=== PATIENT | female | born 1980 | race Two or more races ===

== ENCOUNTER 2021-04-10 13:43 | Emergency (ER) | payer SELFPAY ==
[~2021-04-10] VITALS: Ht 167.6 cm; Wt 72.7 kg
[2021-04-10 14:32] VITALS: BP 167/96
[2021-04-10] MEDS ORDERED: HYDROcodone/APAP 5/325MG 1 TAB TABLET PO ONE (15:00)
--- NOTE | 2021-04-10 15:57 | RAD ---
EXAMINATION: XR LT TIBIA + FIBULA, XR EXAM OF ANKLE_LEFT 3V, XR FOOT_LEFT 3 VIEWS CLINICAL HISTORY: Left lower extremity pain, worst on top of the foot TECHNIQUE: XR LT TIBIA + FIBULA, XR EXAM OF ANKLE_LEFT 3V, XR FOOT_LEFT 3 VIEWS Number of Images/Views: 2 tibia/fibula, 3 ankle, 3 foot COMPARISON: None FINDINGS: Incompletely visualized fracture strongly suspected through the fourth metatarsal base. Questionable fracture along the medial second metatarsal base, best seen on oblique view of the foot. No evidence of additional acute fracture in the foot, ankle, or leg. Mild subcutaneous edema in the foot, most pr onounced dorsally, throughout the ankle, and along the medial aspect of the distal leg. IMPRESSION: Probable fourth metatarsal base fracture and questionable second metatarsal base fracture as describe d, correlate for point tenderness. If there is concern for Lisfranc injury, MRI could be obtained for further evaluation. Electronically signed by: Cosmo Decker DO (04/10/2021 3:55 PM) [id number]
--- NOTE | 2021-04-10 17:42 | PHYS DOC ---
Past Medical History Additional Past Medical Histor: MIGRAINES (NABIL HENAO DO) Past Medical History: Hypertension, Migraines (BREANA GURROLA DO) Past Surgical History: No Surgical History (NABIL HENAO DO) Past Surgical History: No Surgical History (BREANA GURROLA DO) Drug Use: None (BREANA GURROLA DO) General Adult EDM: Chief Complaint: FOOT INJURY PAIN HPI: HPI: 41-year-old female who denies any past medical history, presents the ED with her daughter, (patient consents to his/her/their knowledge and involvement in pts' medical care), with complaints of left ankle pain that occurred just prior to ED arrival. Patient states she was walking barefoot in her house when she accidentally rolled her ankle in an eversion motion. C/o pain over the anterior ankle and dorsal aspect of the foot arch. Denies prior injury to this joint. No associated pain at her knees or hips. Denied her head or lose consciousness. Was not under the influence of any alcohol or drugs. Denies any assault or trauma. (NABIL HENAO DO) Review of Systems: Review of Systems: Constitutional: Denies fever or chills. [] Eyes: Denies change in visual acuity. [] HENT: Denies nasal congestion or sore throat. [] Respiratory: Denies cough or shortness of breath. [] Cardiovascular: Denies chest pain or edema. [] GI: Denies nausea, vomiting, bloody stools or diarrhea. [] : Denies dysuria or vaginal bleeding Musculoskeletal: Denies back pain or saddle anesthesia Integument: Denies rash or diaphoresis Neurologic: Denies headache, neck pain, focal weakness or sensory changes. [] Endocrine: Denies polyuria or polydipsia. [] Lymphatic: Denies swollen glands. [] Psychiatric: Denies depression or anxiety. [] (NABIL HENAO DO) Heart Score: Risk Factors: Risk Factors: DM, Current or recent (<one month) smoker, HTN, HLP, family history of CAD, obesity. Risk Scores: Score 0 - 3: 2.5% MACE over next 6 weeks - Discharge Home Score 4 - 6: 20.3% MACE over next 6 weeks - Admit for Clinical Observation Score 7 - 10: 72.7% MACE over next 6 weeks - Early Invasive Strategies (ADELITA HENAOA M ) C/O Chest Pain: N/A (BREANA GURROLA ) Current Medications: Current Medications Medications (Trade) Dose Ordered Sig/[facility] Start Time Stop Time Status Last Admin Dose Admin Acetaminophen/ Hydrocodone Bitart (Lortab 5/325) 1 tab 1X ONCE 04/10/21 15:00 04/10/21 15:01 DC 04/10/21 15:11 1 [facility] Allergies: Allergies: Allergies Coded Allergies Type Severity Reaction Last Updated Verified No Known Drug Allergies 04/10/21 No ([facility] Physical Exam: PE: Constitutional: In obvious discomfort and pain, well nourished HENT: Normocephalic, atraumatic, Eyes: EOMI, conjunctiva normal, no discharge. Neck: Normal range of motion, supple, no midline pain Cardiovascular: S1/2 present, regular rhythm Lungs & Thorax: Speaking in full sentences, bilateral equal chest rise, no tachypnea or increased work of breathing Skin: Warm, dry, no erythema, no rash. [] Back: No midline spinal step offs or tenderness, no CVA tenderness. [] Extremities: no cyanosis, bruising and tenderness over left dorsal aspect of foot over the arch with tenderness along metatarsals, L dp/pt pulses intact with cap refill less than 1 second, no pain over left fibular head or knee, no pain over left medial lateral malleoli, no plantar ecchymosis sign Neurologic: Alert and oriented X 3, normal motor function, normal sensory function, no focal deficits noted. [] Psychologic: Affect normal, judgement normal, mood normal. [] [facility] PE: Constitutional: Well developed, well nourished, no acute distress, non-toxic appearance HENT: Normocephalic, atraumatic Eyes: Conjunctiva normal, no discharge Neck: Normal range of motion, supple Lungs & Thorax: No respiratory distress, equal chest rise and fall Skin: Warm, dry, no erythema, no rash Extremities: Left forefoot tenderness at base of metatarsals 2-4, moderate swell ing and mild ecchymosis noted, left PT and DP +2, CR < 2 sec Neurologic: Alert and oriented X 3, normal motor function, normal sensory function, no focal deficits noted Psychologic: Affect normal, judgment normal (BREANA GURROLA DO) Current Patient Data: Vital Signs: Vital Signs Date Time Temp Pulse Resp B/P (MAP) Pulse Ox O2 Delivery O2 Flow Rate FiO2 04/10/21 14:32 99.0 70 18 167/96 100 Room Air 99.0 (NABIL HENAO DO) EKG: EKG: [] (NABIL HENAO DO) Radiology/Procedures: Radiology/Procedures: IMAGING REPORT Signed PATIENT: GANGA DEAL ACCOUNT: [id number] : 1980 LOCATION: ER AGE: 41 SEX: F EXAM STATUS: PRE ER ORD. PHYSICIAN: NABIL HENAO DO REASON: top of foot pain PROCEDURE: TIBIA FIBULA LEFT EXAMINATION: XR LT TIBIA + FIBULA, XR EXAM OF ANKLE_LEFT 3V, XR FOOT_LEFT 3 VIEWS CLINICAL HISTORY: Left lower extremity pain, worst on top of the foot TECHNIQUE: XR LT TIBIA + FIBULA, XR EXAM OF ANKLE_LEFT 3V, XR FOOT_LEFT 3 VIEWS Number of Images/Views: 2 tibia/fibula, 3 ankle, 3 foot COMPARISON: None FINDINGS: Incompletely visualized fracture strongly suspected through the fourth metatarsal base. Questionable fracture along the medial second metatarsal base, best seen on oblique view of the foot. No evidence of additional acute fracture in the foot, ankle, or leg. Mild subcutaneous edema in the foot, most pronounced dorsally, throughout the ankle, and along the medial aspect of the distal leg. IMPRESSION: Probable fourth metatarsal base fracture and questionable second metatarsal base fracture as described, correlate for point tenderness. If there is concern for Lisfranc injury, MRI could be obtained for further evaluation. Electronically signed by: Cosmo García DO (04/10/2021 3:55 PM) [id number] DICTATED and SIGNED BY: COSMO GARCÍA DO DATE: 04/10/21 [id number] (NABIL HENAO DO) Radiology/Procedures: PROCEDURE: XR LT TIBIA + FIBULA, XR EXAM OF ANKLE_LEFT 3V, XR FOOT_LEFT 3 VIEWS CLINICAL HISTORY: Left lower extremity pain, worst on top of the foot TECHNIQUE: XR LT TIBIA + FIBULA, XR EXAM OF ANKLE_LEFT 3V, XR FOOT_LEFT 3 VIEWS Number of Images/Views: 2 tibia/fibula, 3 ankle, 3 foot COMPARISON: None FINDINGS: Incompletely visualized fracture strongly suspected through the fourth metatarsal base. Questionable fracture along the medial second metatarsal base, best seen on oblique view of the foot. No evidence of additional acute fracture in the foot, ankle, or leg. Mild subcutaneous edema in the foot, most pronounced dorsally, throughout the ankle, and along the medial aspect of the distal leg. IMPRESSION: Probable fourth metatarsal base fracture and questionable second metatarsal base fracture as described, correlate for point tenderness. If there is concern for Lisfranc injury, MRI could be obtained for further evaluation. Electronically signed by: Cosmo García DO (04/10/2021 3:55 PM) [id number] PROCEDURE: CT LOWER EXTREMITY WO LEFT History: Reason: 4th metatrsal fx, poosible 2nd-lisfranc? / Spl. Instructions: / History: Comparison: Radiographs April 10, 2021. Technique: Noncontrast CT imaging was performed of the left foot. Coronal and sagittal reconstructions were performed. Exposure: One or more of the following individualized dose reduction techniques were utilized for this examination: 1. Automated exposure control 2. Adjustment of the mA and/or kV according to patient size 3. Use of iterative reconstruction technique. Findings: Acute comminuted second metatarsal base fracture. Acute left third metatarsal base fracture. Acute comminuted fourth metatarsal base fracture. No dislocation. There is adjacent soft tissue swelling. Mild tendinous structures are grossly intact.. Impression: 1. Acute left second, third and fourth metatarsal base fractures. No dislocation. If concern for Lisfranc injury, MRI can better evaluate. Electronically signed by: Davian Mcneil DO (04/10/2021 7:32 PM) [facility] (BREANA GURROLA DO) Course & Med Decision Making: Course & Med Decision Making Pertinent Labs and Imaging studies reviewed. (See chart for details) Concern for second metatarsal fracture with probable fourth metatarsal fracture on x-ray. I discussed with Ortho Dr. Cruz concern for lisfranc injury who recommended CT imaging and urgent outpatient follow-up within the next week, emergent MRI not indicated. Due to shift change patient was pending CT, splint and crutches. Patient was signed out to oncoming physician Dr. Gurrola for further evaluation and medical management. (NABIL HENAO DO) Course & Med Decision Making 1800- Sign out received from Dr. Henao for patient with XR findings of fractures at bases of 2nd and 4th metatarsals on left after "rolling" foot on some dirty clothes that had a shoe underneath the pile. Concern for possible Lisfranc fracture. Dr. Henao had previously discussed case with Dr. Cruz (orthopedics) who had requested patient undergo CT imaging for surgical management. CT imaging pending at time of signout. Patient's pain had previously been addressed. CT with findings of fractures to base of second through fourth metatarsals. Re commendation to undergo MRI if concern for Lisfranc fracture. Patient seen and evaluated by myself. Splint applied. Crutches provided. Patient instructed to be nonweightbearing and to follow directly with Dr. Cruz tomorrow. If required, further imaging can be ordered as outpatient by Dr. Cruz. Patient stable for discharge with outpatient follow-up with PCP. Discussed findings and plan with patient, who acknowledges understanding and agreement. (BREANA GURROLA DO) Dragon Disclaimer: [email or web address] Disclaimer: This electronic medical record was generated, in whole or in part, using a voice recognition dictation system. (NABIL HENAO DO) Splinting Splinting : Location: Left LE Hand-Made Type: orthoglass Splint: Posterior OCL Pre-Proc Neuro Vasc Exam: normal Post-Proc Neuro Vasc Exam: normal, unchanged from pre-exam Progress Applied by myself (ED physician) (BREANA GURROLA DO) Departure Departure Impression: Primary Impression: Metatarsal bone fracture Qualified Codes: S92.342A - Displaced fracture of fourth metatarsal bone, left foot, initial encounter for closed fracture Disposition: HOME / SELF CARE / HOMELESS Condition: STABLE Referrals: OMAR CRUZ Jr. DO Patient Instructions: Crutch Use, [id number], Metatarsal Fracture with Rehab- [facility] Additional Instructions: DO NOT BEAR WEIGHT on injuried foot. Maintain splint until cleared by orthopedic surgeon. Dr. Cruz is aware of your injury and wants you to call first thing in the AM to make an appointment to be seen in the office tomorrow, Sunday04/11/21. Please let the office staff know that the ED physicians spoke with Dr. Cruz and he wanted you to be seen tomorrow. ICE area of discomfort 20 min on then leave off next 20 mins. Repeat several times daily as needed for next few days. Scripts Hydrocodone Bit/Acetaminophen (HYDROCODONE-APAP 5-325 ) 1 Tab Tablet 0.5-1 TAB PO PRN Q6HRS PRN for PAIN, #14 TAB 0 Refills Prov: BREANA GURROLA DO 04/10/21 NABIL HENAO DO Apr 10, 2021 17:42 BREANA GURROLA DO Apr 10, 2021 19:03
[2021-04-10] MEDS ORDERED: HYDR-2761 PO (19:02)
--- NOTE | 2021-04-10 19:34 | RAD ---
CT LOWER LEFT EXTREMITY WITHOUT CONTRAST History: Reason: 4th metatrsal fx, poosible 2nd-lisfranc? / Spl. Instructions: / History: Comparison: Radiographs April 10, 2021. Technique: Noncontrast CT imaging was performed of the left foot. Coronal and sagittal reconstruction s were performed. Exposure: One or more of the following individualized dose reduction techniques were utilized for thi s examination: 1. Automated exposure control 2. Adjustment of the mA and/or kV according to patient size 3. Use of iterative reconstruction technique. Findings: Acute comminuted second metatarsal base fracture. Acute left third metatarsal base fracture. Acute co mminuted fourth metatarsal base fracture. No dislocation. There is adjacent soft tissue swelling. Mil d tendinous structures are grossly intact.. Impression: 1. Acute left second, third and fourth metatarsal base fractures. No dislocation. If concern for Lis franc injury, MRI can better evaluate. Electronically signed by: Davian Mcneil DO (04/10/2021 7:32 PM) [facility]
== END 2021-04-10 19:25 | disposition home or self-care (01) ==
LOC: ER 13:43
DX: S92.342A Displaced fracture of fourth metatarsal bone, left foot, initial encounter for closed fracture (principal); I10 Essential (primary) hypertension; G43.909 Migraine, unspecified, not intractable, without status migrainosus; X50.9XXA Other and unspecified overexertion or strenuous movements or postures, initial encounter; Y93.01 Activity, walking, marching and hiking; Y92.89 Other specified places as the place of occurrence of the external cause; Y99.8 Other external cause status
CPT/HCPCS: 29505; 73590; 73610; 73630; 73700; 99284-25